=== PATIENT | female | born 1950 | race Caucasian/White ===

== ENCOUNTER → 2022-12-02 14:09 | Outpatient (BNVA) | payer MEDICARE, OTHER, SELFPAY | PROVIDERS: Visit Provider Physician Assistant | DX: Z13.89 Encounter for screening for other disorder (principal) ==

== ENCOUNTER 2022-12-16 | Outpatient (REF) | payer MEDICARE, OTHER, SELFPAY ==
[2022-12-21 12:08] LABS: H Pylori Breath Test Negative (Negative)
== END 2022-12-16 00:01 | disposition home or self-care (01) ==
LOC: HO.LNP
PROVIDERS: Visit Provider Physician Assistant
DX: Z01.818 Encounter for other preprocedural examination (principal); E66.01 Morbid (severe) obesity due to excess calories
CPT/HCPCS: 36415; 83013

== ENCOUNTER → 2022-12-16 10:42 | Outpatient (BNVA) | payer MEDICARE, OTHER, SELFPAY | PROVIDERS: Visit Provider Physician Assistant | DX: E66.01 Morbid (severe) obesity due to excess calories (principal); I10 Essential (primary) hypertension; E03.9 Hypothyroidism, unspecified; E78.5 Hyperlipidemia, unspecified; Z11.0 Encounter for screening for intestinal infectious diseases | CPT/HCPCS: 36415; 99202; 99211 ==

== ENCOUNTER 2022-12-19 11:20 | Outpatient (REF) | payer MEDICARE, OTHER, SELFPAY ==
--- NOTE | ~2022-12-19 | XR_ITS ---
EXAMINATION: XR CHEST CLINICAL INFORMATION: Bariatric service evaluation. E 6603. COMPARISON: None TECHNIQUE: 2 views of the chest were obtained. FINDINGS: There is mild coarsening bronchiolar markings. There is no hyperinflation, airspace consolidation, groundglass opacity, or effusion. The heart is normal in size. The costophrenic sulci are clear. The vascularity is unremarkable. The hilar and mediastinal contours are unremarkable. There are multilevel degenerative changes thoracic spine. XR/XR chest 2V IMPRESSION: Mild coarsening bronchiolar markings. No hyperinflation, groundglass opacity, or effusion.
--- NOTE | 2022-12-19 11:29 | ECG_ITS ---
Test Reason : e66.01 Blood Pressure : / mmHG Vent. Rate : 067 BPM Atrial Rate : 067 BPM P-R Int : 166 ms QRS Dur : 082 ms QT Int : 402 ms P-R-T Axes : 034 -01 031 degrees QTc Int : 424 ms Normal sinus rhythm Normal ECG No previous ECGs available Referred By: Blanca Barrera Electronically Signed By:JERRY DEVINE
[2022-12-19 11:39] LABS: MANUAL DIFF FLAG NO
[2022-12-19 12:09] LABS: Basophils Percent Auto 0.5 % (0-2); Eosinophils Percent Auto 0.5 % (0-4); Hematocrit 41.5 % (37.0-47.0); Imm Gran Abs Auto 0.03 X10*3/uL (0.00-0.03); Imm Gran Pct Auto 0.4 % (0.0-0.4); Lymphocytes Absolute Auto 1.5 X10*3/uL (1.2-4.9); Lymphocytes Percent Auto 20.6 % (20-40); Mean Corpuscular HGB Conc 31.3 g/dl (31.0-35.0); Mean Corpuscular Volume 86.3 fL (80.0-98.0); Mean Platelet Volume 10.7 fL (9.4-12.3); Monocytes Absolute Auto 0.6 X10*3/uL (0.1-1.2); Monocytes Percent Auto 7.5 % (2-11); Neutrophils Absolute Auto 5.3 x10*3/uL (2.0-8.3); Neutrophils Percent Auto 70.5 % (45-73); Platelet Count 334 X10*3/uL (160-400); Red Blood Count 4.81 X10*6/uL (4.20-5.50); Red Cell Distribution Width 13.5 % (11.0-16.0); White Blood Count 7.5 X10*3/uL (4.8-10.8)
[2022-12-19 13:11] LABS: Estimated Average Glucose 108 mg/dL; Hemoglobin A1c % 5.4 %
[2022-12-19 13:13] LABS: Alanine Aminotransferase 15 U/L (0-31); Albumin Level 3.9 g/dL (3.5-5.0); Alkaline Phosphatase 110 U/L (39-117); Anion Gap 15 (12-20); Aspartate Amino Transferase 29 U/L (5-31); Bilirubin Total 0.7 mg/dL (0.0-1.0); Blood Urea Nitrogen 18 mg/dL (9-16); Calcium 9.8 mg/dL (8.4-10.2); Carbon Dioxide 26 mmol/L (22-29); Chloride 106 mmol/L (96-108); Cholesterol 164 mg/dL; Estimated Glomerular Filt Rate 52; Glucose Random 86 mg/dL (60-115); HDL Cholesterol 66 mg/dL; Iron 89 mcg/dL (30-160); LDL Cholesterol Calculated 84 mg/dl; Percent Iron Saturation 24 % (15-50); Potassium 5.9 mmol/L (3.3-5.1); Sodium 141 mmol/L (135-145); Total Iron Binding Capacity 377 mcg/dL (228-428); Total Protein 6.6 g/dL (6.5-8.0); Triglycerides 70 mg/dL; Unsaturated Iron Binding 288 ug/dL
[2022-12-19 13:25] LABS: Ferritin 19 ng/mL (10-250); Folate 17.2 ng/mL (> or = 4.0); Insulin 8 uU/mL (2-29); TSH reflex Free T4 2.89 uIU/mL (0.32-4.0); Vitamin B12 726 pg/mL (200-900); Vitamin D 25-OH Total 43.7 ng/mL (>30)
[2022-12-23 14:53] LABS: Calcium (PTHI) 9.8 mg/dL (8.6-10.4); PTHI 101 pg/mL (16-77)
[2022-12-24 00:19] LABS: Zinc 81 mcg/dL (60-130)
[2022-12-24 22:38] LABS: Vitamin A 48 mcg/dL (38-98)
[2022-12-26 12:18] LABS: Vitamin B1 17 nmol/L (8-30)
== END 2022-12-19 11:21 | disposition home or self-care (01) ==
LOC: HO.LAB 11:20
PROVIDERS: Visit Provider Physician Assistant
DX: Z01.818 Encounter for other preprocedural examination (principal); E66.01 Morbid (severe) obesity due to excess calories; E03.9 Hypothyroidism, unspecified; E78.5 Hyperlipidemia, unspecified; I10 Essential (primary) hypertension; Z90.3 Acquired absence of stomach [part of]; Z98.84 Bariatric surgery status; Z20.2 Contact with and (suspected) exposure to infections with a predominantly sexual mode of transmission
CPT/HCPCS: 36415; 71046; 80053; 80061; 82306; 82607; 82728; 82746; 83036; 83525; 83540; 83970; 84425; 84443; 84590; 84630; 85025; 86140; 93005

== ENCOUNTER → 2023-01-19 13:10 | Outpatient (BNVA) | payer MEDICARE, OTHER, SELFPAY | PROVIDERS: Visit Provider Dietitian, Registered | DX: E66.9 Obesity, unspecified (principal); Z68.38 Body mass index [BMI] 38.0-38.9, adult | CPT/HCPCS: 97802 ==

== ENCOUNTER → 2023-01-22 10:10 | Outpatient (BNVA) | payer MEDICARE, OTHER, SELFPAY | PROVIDERS: PCP Nurse Practitioner Primary Care; Visit Provider Physician Assistant | DX: E66.01 Morbid (severe) obesity due to excess calories (principal); I10 Essential (primary) hypertension; E03.9 Hypothyroidism, unspecified; E78.5 Hyperlipidemia, unspecified; Z68.37 Body mass index [BMI] 37.0-37.9, adult; Z90.3 Acquired absence of stomach [part of]; Z98.84 Bariatric surgery status | CPT/HCPCS: 99212 ==

== ENCOUNTER 2023-02-02 08:19 | Outpatient (REF) | payer MEDICARE, OTHER, SELFPAY ==
--- NOTE | ~2023-02-02 | US_ITS ---
EXAMINATION: US COMPLETE ABDOMEN WITH LIVER ELASTOGRAPHY CLINICAL INFORMATION: Obesity COMPARISON: None available. TECHNIQUE: Real-time imaging of the abdominal viscera. Noninvasive ultrasound liver fibrosis assessment is performed using Joey ElastPQ point quantification shear wave elastography (2D-SWE) with a C5-2 MHz transducer. Multiple elastography samples are obtained. FINDINGS: PANCREAS: Normal. ABDOMINAL AORTA: The proximal, middle, and distal aortic segments are normal in caliber. INFERIOR VENA CAVA: Visualized portions are normal. LIVER: Normal. The liver demonstrates normal size, contour and echogenicity. No focal lesion or intrahepatic biliary duct dilatation. The right lobe measures 16 cm in length. The left lobe measures 6 cm in length. Portal flow is normal/hepatopedal Shear wave liver elastography median stiffness is 1.3 m/s (reference: normal median stiffness is 1.3 m/s or less). IQR/median stiffness to assess sampling precision is 0.22 (reference: good quality data set is IQR/median stiffness of 0.15 or less). GALLBLADDER: Normal. The gallbladder is physiologically distended without evidence of stones, sludge, polyps, wall thickening or pericholecystic fluid. COMMON BILE DUCT: Normal in caliber measuring 0.3 cm in diameter. RIGHT KIDNEY: Normal. No hydronephrosis. No renal calculi or focal parenchymal lesions. The kidney measures 10 cm in maximum dimension. LEFT KIDNEY: Normal. No hydronephrosis. No renal calculi or focal parenchymal lesions. The kidney measures 10.4 cm in maximum dimension. SPLEEN: Normal. The spleen measures 8 cm in maximum dimension. FREE FLUID: None. US/US abdomen comp w elastography IMPRESSION: 1. Impression: Unremarkable exam. 2. Liver elastography: Limited due to sampling error. Liver stiffness is not elevated. REFERENCE: Society of Radiologists in Ultrasound Liver Stiffness Thresholds (2020): LIVER STIFFNESS THRESHOLDS: *Liver Stiffness equal or less than 1.3 m/s: High probability of being normal. *Liver Stiffness less than 1.7 m/s: In the absence of other known clinical signs, rules out compensated advanced chronic liver disease. *Liver Stiffness 1.7-2.1 m/s: Suggestive of compensated advanced chronic liver disease but need further test for confirmation. *Liver Stiffness over 2.1 m/s: Rules in compensated advanced chronic liver disease. *Liver Stiffness over 2.4 m/s: Suggestive of clinically significant portal hypertension. QUALITY OF DATA SET: *IQR/Median value equal or less than 0.15 implies a quality data set. *IQR/Median value over 0.15 implies a poor quality data set. SIGNIFICANT CHANGE FROM PRIOR EXAM: Significant change if liver stiffness measurement is 10% or greater from prior exam. OTHER CONSIDERATIONS: The stage of liver fibrosis may be overestimated in the setting of acute hepatitis, liver inflammation, elevated liver function tests, hepatic vascular congestion, obstructive cholestasis, non-fasting state, and infiltrative diseases such as amyloidosis and lymphoma. In some patients with NAFLD, the liver stiffness thresholds for compensated advanced chronic liver disease may be lower. In causes other than viral hepatitis and NAFLD, liver stiffness thresholds are not well established.
--- NOTE | ~2023-02-02 | FL_ITS ---
EXAMINATION: XR FLUOROSCOPY UPPER GI WITH AIR CLINICAL INFORMATION: Obesity COMPARISON: None available. TECHNIQUE: Upper GI was performed using thin and thick barium and effervescent granules FINDINGS: Esophageal motility is abnormal with tertiary contractions. There is severe gastroesophageal reflux. The stomach is small and there are postsurgical changes to the stomach suggestive of gastric sleeve. No fold thickening, mass, ulcer or stricture is seen. FLUOROSCOPY TIME: 0.7 minutes DOSE AREA PRODUCT: 6 saenz per centimeter squared. 25 saved fluoroscopic images. FL/FL upper GI w air IMPRESSION: Abnormal esophageal motility with tertiary contractions and severe gastroesophageal reflux. Postsurgical changes to the stomach probably from gastric sleeve.
== END 2023-02-02 08:20 | disposition home or self-care (01) ==
LOC: HO.US 08:19
PROVIDERS: PCP Nurse Practitioner Primary Care; Visit Provider Physician Assistant
DX: Z01.818 Encounter for other preprocedural examination (principal); E66.01 Morbid (severe) obesity due to excess calories; E03.9 Hypothyroidism, unspecified; E78.5 Hyperlipidemia, unspecified; I10 Essential (primary) hypertension; Z90.3 Acquired absence of stomach [part of]; Z98.84 Bariatric surgery status
CPT/HCPCS: 74246; 76705; 76981

== ENCOUNTER → 2023-02-09 10:01 | Outpatient (BNVA) | payer MEDICARE, OTHER, SELFPAY | PROVIDERS: PCP Nurse Practitioner Primary Care; Visit Provider Counselor Mental Health ==

== ENCOUNTER → 2023-02-11 08:56 | Outpatient (BNVA) | payer MEDICARE, OTHER, SELFPAY | PROVIDERS: PCP Nurse Practitioner Primary Care; Visit Provider Physician Assistant | DX: E66.01 Morbid (severe) obesity due to excess calories (principal); E03.9 Hypothyroidism, unspecified; E78.5 Hyperlipidemia, unspecified; I10 Essential (primary) hypertension; Z90.3 Acquired absence of stomach [part of]; Z98.84 Bariatric surgery status; Z98.890 Other specified postprocedural states; Z87.19 Personal history of other diseases of the digestive system; Z68.36 Body mass index [BMI] 36.0-36.9, adult | CPT/HCPCS: 99212 ==

== ENCOUNTER 2023-03-03 11:34 | Day surgery (SDC) | payer MEDICARE, OTHER, SELFPAY ==
[2023-02-27 10:56] VITALS: BMI 36.7
--- NOTE | 2023-02-27 22:25 | MHC.SHP ---
Pre-Procedural Eval Section A Date of Service: 02/27/23 The patient is an INPATIENT: No The History & Physical has been completed within 30 days and I have reviewed it.: Yes Section B Chief Complaint: GERD Relevant Family History (Specify if Yes): No Relevant Social History: None Present Medications: None Medical History: No relevant PMH History of Previous Operations: Relevant previous surgery/procedure and date(s) (1) lap band, 2) lap band replacement with a hiatal hernia repair, 3) lap band removal, 4) sleeve gastrectomy) Allergies: Allergies Allergy/AdvReac Type Severity Reaction Status Date / Time No Known Allergies Allergy Verified 02/11/23 09:04 Review of Systems Sugical H&P ROS: Negative: Constitution, Cardiovascular, Respiratory, Neurological, Psychiatric, Hem-Onc, Allergic/Immunologic, Genitourinary, Musculoskeletal, Integumentary, Endocrine and Eyes/Ears/Nose/Throat and Yes, Specify: Gastrointestinal (GERD) Exam Surgical H&P Exam: Normal: HEENT, Normal: Heart, Normal: Lungs, Normal: Extremities, Normal: Abdomen, Normal: Skin and Normal: Neurological Plan Diagnosis/Plan: Unchanged (EGD to assess for esphagitis. Inability to stop PPIs for H pylori test. Risks for perforation and bleeding were discussed with patient. She is in agreement with the plan) I have reviewed the history and physical and performed a pertinent physical examination on my patient. No changes have occurred unless specified. Time Spent With Patient Time: Total time managing care of this patient today ____ minutes.
--- NOTE | 2023-03-02 09:29 | P.CONAN_ITS ---
Documented by User: Fannie Parry NP 03/02/23 09:31 HPI - Anesthesia Eval Consult details Narrative: 72yo F for Upper Endoscopy Last K elevated @ 5.9 on 12/19/22. Pt instructed to stop vitamins with K by bariatrics. Will recheck DOS PMFSH Active Problems Active Problems: All Active Problems (Updated 12/16/22 @ 11:57 by Blanca Barrera PA-C) Morbid obesity (Acute) HTN (hypertension), benign (Acute) Hypothyroidism (acquired) (Acute) Hyperlipidemia (Acute) Pre-op evaluation (Acute) Adjustment disorder, unspecified (Acute) Hx of hernia repair (Acute) Hx of laparoscopic gastric banding (Acute) S/P gastric sleeve procedure (Acute) Past Medical History Medical History Adjustment disorder HTN (hypertension) Hyperlipidemia Hypothyroid Family History Family History Mother Multiple myeloma Father No problems noted. Brother Heart problem Brother Hypertension Surgical History Surgical History History of removal of laparoscopic gastric banding device Hx of hernia repair Hx of laparoscopic gastric banding S/P gastric sleeve procedure Social History Social History Alcohol intake: never Patient Tobacco Use Status: Never used Tobacco Second Hand Smoke Exposure: No Use of substances other than those prescribed or required for medical reasons: No Are you DNR?: No Advance Directives: No Advance Directives Information Provided: Yes Advance Directives on File: No Meds Allergies Allergy/AdvReac Type Severity Reaction Status Date / Time No Known Allergies Allergy Verified 02/11/23 09:04 Home Medications Medication Instructions Recorded Confirmed Last Taken Type atorvastatin 20 mg tablet 20 mg PO DAILY 12/02/22 02/27/23 Unknown History irbesartan 300 mg tablet 300 mg PO DAILY 12/02/22 02/27/23 Unknown History levothyroxine 75 mcg tablet 75 mcg PO DAILY 12/02/22 02/27/23 Unknown History oxybutynin chloride 15 mg 15 mg PO DAILY 02/11/23 02/27/23 Unknown History tablet,extended release 24 hr Exam Exam Date and Time: March 02, [id number] Height,Weight and Vital Signs: Height 5 ft 1 in Weight 87.997 kg Pertinent Lab Results Pertinent Lab Results: Laboratory Tests 12/19/22 12/19/22 11:38 11:38 WBC 7.5 Hgb 13.0 Hct 41.5 Plt Count 334 Carbon Dioxide 26 BUN 18 H Creatinine 1.05 Narrative Narrative: EKG 12/2022 Vent. Rate : 067 BPM ? ? Atrial Rate : 067 BPM ?? P-R Int : 166 ms? QRS Dur : 082 ms ? ? QT Int : 402 ms ? ? ? P-R-T Axes : 034 -01 031 degrees ?? QTc Int : 424 ms ? Normal sinus rhythm Normal ECG No previous ECGs available Assessment and Plan Assessment Anesthesia Assessment: Chart Reviewed Documented by User: Tanja Mccabe MD 03/03/23 13:24 ON LICENSE OF [facility] Past Medical History Medical History Adjustment disorder HTN (hypertension) Hyperlipidemia Hypothyroid Family History Family History Mother Multiple myeloma Father No problems noted. Brother Heart problem Brother Hypertension Surgical History Surgical History History of removal of laparoscopic gastric banding device Hx of hernia repair Hx of laparoscopic gastric banding S/P gastric sleeve procedure History of Problems with Anesthesia: No Social History Social History Alcohol intake: never Patient Tobacco Use Status: Never used Tobacco Second Hand Smoke Exposure: No Use of substances other than those prescribed or required for medical reasons: No Are you DNR?: No Advance Directives: No Advance Directives Information Provided: Yes Advance Directives on File: No Meds Allergies Allergy/AdvReac Type Severity Reaction Status Date / Time No Known Allergies Allergy Verified 02/11/23 09:04 Home Medications Medication Instructions Recorded Confirmed Last Taken Type atorvastatin 20 mg tablet 20 mg PO DAILY 12/02/22 02/27/23 Unknown History irbesartan 300 mg tablet 300 mg PO DAILY 12/02/22 02/27/23 Unknown History levothyroxine 75 mcg tablet 75 mcg PO DAILY 12/02/22 02/27/23 Unknown History oxybutynin chloride 15 mg 15 mg PO DAILY 02/11/23 02/27/23 Unknown History tablet,extended release 24 hr Exam Airway Mallampati Class: III TM Dist: >3cm Neck ROM: Full Loose/Missing/Broken Teeth: Yes and Lower (center) Heart: RRR Lungs: CTA Assessment and Plan Assessment Anesthesia Assessment: Anesthesia Plan Discussed Final Anesthetic Review History of Problems with Anesthesia: No NPO: Yes ASA Class: II, III, and Emergency Final Preanesthetic Review: Meds/Allgs Chart Reviewed, Consent Obtained/Reviewed and Anes Risks/Benef Reviewed Patient Risk: Low Procedure Risk: Intermediate Anesthetic Plan Anesthetic Plan: MAC: Disposition: Standard PACU
[2023-03-02 14:27] LABS: COVID-19 Test Negative (Negative); IDNOW Serial# 08D9AD1C
[2023-03-03 12:41] VITALS: BP 144/91; PULSE 67; RESP 16; TEMP 36.2; O2SAT 100
[2023-03-03] MEDS: Lactated Ringers 1,000 ML 100 ML IVCONT (12:42)
--- NOTE | 2023-03-03 12:59 | P.BOP_ITS ---
Brief Operative Note Date of Service: 03/03/23 Pre-op diagnosis: GERD, s/p sleeve gastrectomy and lap band Post-op diagnosis: same Procedure: PROCEDURE DATE: 03/03/2023 PREOPERATIVE DIAGNOSIS: GERD, s/p sleeve gastrectomy and lap band POSTOPERATIVE DIAGNOSIS: ?Same as above. 1) small hiatal hernia, 2) bile reflux PROCEDURE: Poacegie-rzaaxz-gijpcusrlrzw with biopsies Surgeon: ?Jluis Ceballos M.D.. Ph.D. Electrotyper Apprentice: None ? Anesthesia: IV sedation Estimated blood loss: ?Minimal FINDINGS AND PROCEDURE: ? OPERATIVE INDICATIONS: ?The patient is a 72 year old female known to me who underwent a laparoscopic sleeve gastrectomy following a lap band procedure prior to that. The patient had remarkable weight loss so far and had a completely uneventful recovery.? The patient was doing very well but has recently been complaining of GERD. Based on this information I recommended an upper endoscopy to evaluate the patient's symptoms. Risks and complications of the surgery were discussed with the patient in advance particularly the possibility of perforation or bleeding that may require surgical intervention. The patient understood the risks and was in agreement with the plan. ? PROCEDURE: After informed consent was obtained by the patient, the patient was ?transferred to the Operating Room and was placed in the supine position.? After successful induction of IV sedation, a mouth block was inserted and the patient was placed in the left lateral decubitus position. An upper endoscopy was performed next, the oropharynx and esophagus appeared within the normal limits. There was a small hiatal hernia. The z-line was smooth. Two biopsies were obtained from the distal esophagus 2-3 cm proximal to the GE junction and two additional biopsies from the GE junction. The sleeve was entered and it appeared to be of normal size and of even caliber. There was bile reflux through the sleeve and distal 3rd of the esophagus. There was no stricture or ulcer. Biopsies were obtained from the proximal sleeve as well as the distal antrum. No significant bleeding was noted from any of the biopsy sites. The scope was then advanced into the duodenum which appeared to be normal as well. At that point the duodenum ?and the sleeve were decompressed and the scope was withdrawn from the patient's mouth. The patient extubated and was transferred in stable condition to the Recovery Room for further care. I was present and performed all steps of the procedure. There were no residents to assist with this case. Jluis Ceballos M.D., Ph.D. Surgeon: Roman Ceballos MD Anesthesia: MAC Was an Electrotyper Apprentice used for this Procedure?: No Estimated blood loss (mL): 0 IV fluids (mL): 400 Urine output (mL): 0 (No Fu to record output) Pathology: other (1) antrum x1, 2) proximal sleeve/gastric fundus x1, 3) EGJ x2, 4) distal esophagus x2) Condition: stable Disposition: PACU
[2023-03-03 13:08] LABS: Anion Gap 15 (12-20); Carbon Dioxide 25 mmol/L (22-29); Chloride 105 mmol/L (96-108); Potassium 4.8 mmol/L (3.3-5.1); Sodium 140 mmol/L (135-145)
[2023-03-03 13:42] VITALS: BP 130/85; PULSE 73; RESP 18; TEMP 36.4; O2SAT 100
[2023-03-03 13:57] VITALS: BP 140/80; PULSE 62; RESP 16; O2SAT 96
[2023-03-03 14:12] VITALS: BP 163/81; PULSE 70; RESP 14; TEMP 36.3; O2SAT 98
== END 2023-03-03 15:51 | disposition home or self-care (01) ==
PROVIDERS: Nurse Practitioner; Physician Assistant Surgical; PCP Nurse Practitioner Primary Care; Visit Provider Surgery
PROC: 0DJ08ZZ Inspection of Upper Intestinal Tract, Via Natural or Artificial Opening Endoscopic (ICD-10-PCS; CPT 43235; principal; 2023-03-03 12:50)
DX: K21.9 Gastro-esophageal reflux disease without esophagitis (principal); Z98.84 Bariatric surgery status; Z90.3 Acquired absence of stomach [part of]; K44.9 Diaphragmatic hernia without obstruction or gangrene; E66.01 Morbid (severe) obesity due to excess calories; Z68.36 Body mass index [BMI] 36.0-36.9, adult; I10 Essential (primary) hypertension; E78.5 Hyperlipidemia, unspecified; E03.9 Hypothyroidism, unspecified; Z79.899 Other long term (current) drug therapy; Z20.822 Contact with and (suspected) exposure to COVID-19; Z98.890 Other specified postprocedural states
CPT/HCPCS: 43239; 36415; 80051; 87635; 88305; 88342

== ENCOUNTER → 2023-03-04 08:58 | Outpatient (BNVA) | payer MEDICARE, OTHER, SELFPAY | PROVIDERS: PCP Nurse Practitioner Primary Care; Visit Provider Physician Assistant | DX: Z90.3 Acquired absence of stomach [part of] (principal); I10 Essential (primary) hypertension; E78.5 Hyperlipidemia, unspecified; Z98.890 Other specified postprocedural states; Z87.19 Personal history of other diseases of the digestive system | CPT/HCPCS: 99212 ==

== ENCOUNTER → 2023-04-02 09:04 | Outpatient (BNVA) | payer MEDICARE, OTHER, SELFPAY | PROVIDERS: PCP Nurse Practitioner Primary Care; Visit Provider Physician Assistant | DX: E66.9 Obesity, unspecified (principal); Z68.34 Body mass index [BMI] 34.0-34.9, adult; Z98.84 Bariatric surgery status | CPT/HCPCS: 99212 ==

== ENCOUNTER 2023-05-11 09:04 | Outpatient (AMB) | payer MEDICARE, OTHER, SELFPAY ==
[2023-05-11 09:07] VITALS: BP 126/68; PULSE 67; TEMP 35.8; O2SAT 99; BMI 33.1
--- NOTE | 2023-05-11 09:07 | A.OFFVIS_ITS ---
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 Does not want GBP after her previous LSG. 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 Has had HTN meds decreased. Diagnosed with B hip osteoporosis and declines meds wants to start ST. Has stopped carafate and now takes omeprazole 3d/wk only - no symptoms. PCP Mayra Li NP [phone] at [facility]. No changes needed to meal plan. Having one meal, 2 shakes per day and 1 yogurt or hb eggs per day. Exercise - walks 45 minutes almost 2 miles every day. Has not started ST yet. [facility] Medical History (Updated 04/02/23 @ 09:47 by Blanca Barrera PA-C) Adjustment disorder HTN (hypertension) Hyperlipidemia Hypothyroid Morbid obesity Surgical History History of removal of laparoscopic gastric banding device History of surgical removal of skin lesion Hx of hernia repair Hx of laparoscopic gastric banding S/P gastric sleeve procedure Family History Mother Multiple myeloma Father No problems noted. Brother Heart problem Brother Hypertension Social History Alcohol intake: never Patient Tobacco Use Status: Never used Tobacco Second Hand Smoke Exposure: No Physical Exam Vital Signs: Last Vital Signs Temp 96.5 F L 05/11/23 09:07 Pulse 67 05/11/23 09:07 BP 126/68 05/11/23 09:07 Pulse Ox 99 05/11/23 09:07 Oxygen Delivery Method Room Air 05/11/23 09:07 BMI result Body Mass Index 33.1 Assessment & Plan Assessment & Plan (1) Obesity: Code(s): E66.9 - Obesity, unspecified Plan: Excellent weight loss of 19.1%, will continue same meal plan. She now agrees to staart ST 3d/ week along with her walking routine. Goal of BMI<30. Next appt with me in 1 month. Patient is obese and is not considered stable at this time. I spent 20 minutes in total with patient reviewing/updating records, examining the patient and counseling the patient on weight management as detailed above. (2) S/P gastric sleeve procedure: Comment: 01/30/2017 [facility] Code(s): Z90.3 - Acquired absence of stomach [part of] Medications: New omeprazole 20 mg PO .3d/week 14 caps 2RF Coding Level of Care Code Est Pt Level 3 (09163) Diagnoses Obesity E66.9 S/P gastric sleeve procedure Z90.3
== END 2023-05-11 09:58 | disposition home or self-care (01) ==
PROVIDERS: PCP Nurse Practitioner Primary Care; Visit Provider Physician Assistant
DX: E66.9 Obesity, unspecified (principal); Z68.33 Body mass index [BMI] 33.0-33.9, adult; Z90.3 Acquired absence of stomach [part of]; Z98.84 Bariatric surgery status
CPT/HCPCS: 99213

== ENCOUNTER → 2023-05-11 09:04 | Outpatient (BNVA) | payer MEDICARE, OTHER, SELFPAY | PROVIDERS: PCP Nurse Practitioner Primary Care; Visit Provider Physician Assistant | DX: E66.9 Obesity, unspecified (principal); Z68.33 Body mass index [BMI] 33.0-33.9, adult; Z90.3 Acquired absence of stomach [part of] | CPT/HCPCS: 99212 ==